=== PATIENT | male | born 1990 | race Asian ===

== ENCOUNTER 2018-12-05 16:06 | Emergency (ER) | payer OTHER | END 2018-12-05 18:31 | disposition home or self-care (01) | LOC: JER 16:06 → JERFT 18:31 ==

== ENCOUNTER 2019-05-28 00:56 | Emergency (ER) | payer OTHER ==
--- NOTE | 2019-05-28 01:16 | PDOC ---
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 Patient states that he was reaching across another provider while there was an exposed needle after the other provider had taken it out of the patients arm. He noticed some mild bleeding from his puncture wound after the contact. Denies any continued bleeding, nausea, vomiting, diarrhea, or other symptoms. He has had a few needle stick injuries in the past and has had lab draws. 05/28/19 03:39 Past History - Past Medical History Allergies/Adverse Reactions: Allergies Allergy/AdvReac Type Severity Reaction Status Date / Time No Known Allergies Allergy Verified 12/05/18 16:39 COPD: No - Immunization History Immunization Up to Date: Yes - Psycho Social/Smoking Cessation Hx Smoking History: Never smoked Review of Systems - Review of Systems Constitutional: No: Chills, Diaphoresis, Fever, Loss of Appetite HEENTM: No: Blurred Vision, Tearing Respiratory: No: Cough, Orthopnea, Shortness of Breath Cardiac (ROS): No: Chest Pain, Edema, Irregular Heart Rate ABD/GI: No: Diarrhea, Nausea, Vomiting : No: Dysuria, Discharge Musculoskeletal: No: Back Pain, Gout, Joint Pain Integumentary: No: Bruising, Lesions, Lumps, Pallor Neurological: No: Headache, Numbness, Paresthesia Psychiatric: No: Anxiety, Depression Hematologic/Lymphatic: No: Anemia, Blood Clots, Easy Bleeding *Physical Exam - Physical Exam General Appearance: Yes: Nourished, Appropriately Dressed. No: Apparent Distress HEENT: positive: EOMI, ERICK, Normal ENT Inspection, Normal Voice Neck: positive: Trachea midline, Normal Thyroid, Supple. negative: Tender, Rigid Respiratory/Chest: positive: Lungs Clear, Normal Breath Sounds. negative: Chest Tender, Respiratory Distress, Accessory Muscle Use Cardiovascular: positive: Regular Rhythm, Regular Rate Gastrointestinal/Abdominal: positive: Normal Bowel Sounds, Flat, Soft. negative : Tender Lymphatic: negative: Adenopathy, Tenderness Musculoskeletal: positive: Normal Inspection. negative: Decreased Range of Motion Extremity: positive: Normal Capillary Refill, Normal Inspection, Normal Range of Motion. negative: Tender Integumentary: positive: Normal Color, Dry, Warm Neurologic: positive: Fully Oriented, Alert, Normal Mood/Affect, Normal Response , Motor Strength 5/5 Medical Decision Making - Medical Decision Making 29 year old male with no PMH presenting after a needle stick injury. Labs drawn and sent. Patient was laughing the whole time which he says is normal behavior for him. Patient whose blood was on the needle had a negative HIV test. Patient DC'd with return precautions, needle stick prevention tips, and follow up instructions. 05/28/19 03:43 Discharge - Discharge Information Problems reviewed: Yes Clinical Impression/Diagnosis: Needle exposure Qualifiers: Encounter type: initial encounter Qualified Code(s): X58.XXXA - Exposure to other specified factors, initial encounter Condition: Stable Disposition: HOME - Admission No - Follow up/Referral Referrals: Lew Osborne [Primary Care Provider] - - Patient Discharge Instructions Patient Printed Discharge Instructions: How to Handle Body Fluid Exposure -- Healthcare Worker Additional Instructions: Please stop sticking yourself with needles. Please see your PCP in one week. Please return to the ED if you have new or worsening symptoms. - Post Discharge Activity Work/Back to School Note: Back to Work
--- NOTE | 2019-05-28 01:21 | PDOC ---
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 Patient states that he was reaching across another provider while there was an exposed needle after the other provider had taken it out of the patients arm. He noticed some mild bleeding from his puncture wound after the contact. Denies any continued bleeding, nausea, vomiting, diarrhea, or other symptoms. He has had a few needle stick injuries in the past and has had lab draws. - Physicial Exam PE: 05/28/19 05:26 Agree with resident exam Pt has normal VS and afebrile Abd soft NT ND heart RRRlungs clear Neuro exam WNL - Medical Decision Making 05/28/19 05:27 Pt will have all blood test panels sent. Pt can follow with occupational health. 05/28/19 05:27 Needlestick from the donor patient who is HIV neg.
[2019-05-28 01:46] VITALS: BP 132/81; PULSE 78; TEMP 98.3; BMI 23.6
== END 2019-05-28 01:57 | disposition home or self-care (01) ==
LOC: JER 00:56
DX: Z77.21 Contact with and (suspected) exposure to potentially hazardous body fluids (principal); W46.1XXA Contact with contaminated hypodermic needle, initial encounter; Y93.F9 Activity, other caregiving; Y92.238 Other place in hospital as the place of occurrence of the external cause; Y99.0 Civilian activity done for income or pay
CPT/HCPCS: 99281-25